=== PATIENT | male | born 1950 | race Caucasian/White ===

== ENCOUNTER 2021-01-31 09:43 | Emergency (ER) | payer MEDICARE ==
[~2021-01-31] VITALS: Ht 180.3 cm; Wt 67.0 kg
[2021-01-31] MEDS ORDERED: HYDROmorphone 1 MG/ML, 1ML INJ ONE (10:27)
[2021-01-31] MEDS ORDERED: KETOROLAC 60 MG/2 ML ONE (10:27)
[2021-01-31] MEDS ORDERED: ONDANSETRON 2MG/ML, 2ML IVPush ONE (10:30)
[2021-01-31] MEDS ORDERED: KETOROLAC 30 MG/1 ML IV ONE ×2 (10:30→11:00)
[2021-01-31] MEDS ORDERED: HYDROmorphone 1 MG/ML, 1ML INJ IV ONE (10:30)
[2021-01-31] MEDS ORDERED: SODIUM CHLORIDE 0.9% 1,000ML IV ONE (10:30)
[2021-01-31] MEDS ORDERED: SODIUM CHLORIDE FLUSH 10ML SYR IVF ONE (10:30)
[2021-01-31] MEDS ORDERED: ONDANSETRON 2MG/ML, 2ML ONE (10:32)
--- NOTE | 2021-01-31 10:42 | NUR ---
PT AMBULATORY TO ROOM 17 W/ C/O L FLANK PAIN STARTED 1 HR AGO. PT STATES HE WAS FINE UNTIL THEN. STATES PAIN 10/10 ON ARRIVAL. PIV INITIATED AND PT MEDICATED PER DEC. STATES PAIN 11/13. PT RESTING ON GURNEY. NADN. MONITORS APPLIED. VSS.
[2021-01-31 10:44] LABS: BASOPHILS % (AUTO) 1 % (0-1); EOSINOPHILS % (AUTO) 2 % (1-7); LYMPHOCYTES % (AUTO) 20 % (22-44); MEAN CORPUSCULAR HEMOGLOBIN 31.7 pg (27.5-34.5); MEAN CORPUSCULAR HGB CONC 34.6 g/dL (33.2-36.2); MEAN PLATELET VOLUME 7.8 fL (7.4-10.4); MONOCYTES % (AUTO) 5 % (2-9); NEUTROPHILS % (AUTO) 72 % (42-75); PLATELET COUNT 191 x10^3/uL (130-400); RED BLOOD COUNT 4.54 x10^6/uL (4.38-5.82); RED CELL DISTRIBUTION WIDTH 13.6 % (9.4-14.8)
[2021-01-31 10:53] LABS: MD NO
[2021-01-31 10:56] LABS: ALANINE AMINOTRANSFERASE 24 U/L (12-78); ALBUMIN 4.4 g/dL (3.4-5.0); ANION GAP 7 mmol/L (5-15); CALCIUM 10.1 mg/dL (8.5-10.1); CHLORIDE 110 mmol/L (98-107); CREATININE 1.11 mg/dL (0.7-1.3)
[2021-01-31 10:58] LABS: ALKALINE PHOSPHATASE 52 U/L (45-117); BILIRUBIN,TOTAL 0.7 mg/dL (0.2-1.0); TOTAL PROTEIN 7.7 g/dL (6.4-8.2)
--- NOTE | 2021-01-31 11:16 | NUR ---
PT RESTING ON GURNEY. NADN. [place].
[2021-01-31 11:34] LABS: MICROSCOPIC INDICATED
[2021-01-31 12:54] VITALS: BP 103/67
--- NOTE | 2021-01-31 12:54 | NUR ---
PT RESTING ON GURNEY. NADN. [place].
== END 2021-01-31 13:33 | disposition home or self-care (01) ==
LOC: ED 13:30
DX: N13.2 Hydronephrosis with renal and ureteral calculous obstruction (principal); R10.9 Unspecified abdominal pain; Z85.118 Personal history of other malignant neoplasm of bronchus and lung
CPT/HCPCS: 36415; 74176; 80053; 81001; 85025; 87086; 96361; 96374; 96375; 99285; J1170; J1885; J2405; J7030